=== PATIENT | female | born 1970 | race Caucasian/White ===

== ENCOUNTER 2025-02-17 12:13 | Emergency (ER) | payer BC ==
[~2025-02-17] VITALS: Ht 172.7 cm; Wt 75.0 kg
[2025-02-17 12:23] VITALS: TEMP 98.4
[2025-02-17 13:49] LABS: CREATININE 0.76 MG/DL (0.40-0.90); TOTAL CARBON DIOXIDE 24.8 MMOL/L (24-32); eCRCL 84 ML/MIN; eGFR 79 ML/MIN
[2025-02-17 14:07] LABS: MEAN PLATELET VOLUME 7.8 FL (7.4-10.4); RED CELL DISTRIBUTION WIDTH 12.7 % (11.5-14.5)
[2025-02-17 14:33] LABS: URINE HCG NEGATIVE (NEG)
[2025-02-17 14:35] LABS: LEUKOCYTE ESTERASE ,URINE NEGATIVE (Neg); NITRITES, URINE NEGATIVE (Neg); OCCULT BLOOD,URINE SMALL (Neg)
[2025-02-17 14:42] LABS: UA COLLECTION TYPE CLN CATCH MIDSTREAM
[2025-02-17 14:43] LABS: SQUAMOUS EPITHELIAL CELL,UR FEW /LPF (FEW)
[2025-02-17 14:45] LABS: AMORPHOUS URATES 1+
--- NOTE | 2025-02-17 15:00 | Physician Documentation ---
History of Present Illness Chief Complaint: Abdominal Pain Stated Complaint: DOCTOR REFERRAL Time Seen by MD: 14:10 HPI 54-year-old female with a history of diverticulitis was evaluated at [facility] yesterday. She Had bloating, right lower quadrant pain She States that she essentially has not been eating for several days in a self-described bowel rest. Patient has been hospitalized before for a small ulceration in her descending colon in 2022. She was negative for any blood in her stool and [facility] With a CTA performed at [facility], the impression indicated that the patient has acute diverticulitis with possible perforation Medication Reconciliation Allergies: Coded Allergies: No Known Allergies (Unverified , 02/17/25) Scheduled Amox Tr/Potassium Clavulanate 875/125 MG (Augmentin 875/125 MG), 1 TAB PO Q12H Physical Exam Vital Signs: Temperature: 98.4, Source: Temporal, Heart Rate: 78, Respiratory Rate: 16, BP: 125/84, Pulse Oximetry: 99, Weight: 75.000 Oxygen Flow Rate: 0 Progress Results/Orders Results/Orders Vital Signs 02/17/25 02/17/25 12:23 14:33 Temp 98.4 Pulse 78 Resp 16 16 B/P (MAP) 125/84 Pulse Ox 99 O2 Flow Rate 0 Laboratory Tests Test 02/17/25 13:20 02/17/25 14:14 White Blood Count 5.6 Red Blood Count 4.53 Hemoglobin 13.4 Hematocrit 38.3 Mean Corpuscular Volume 84.5 Mean Corpuscular Hemoglobin 29.7 Mean Corpuscular Hemoglobin Concent 35.1 Red Cell Distribution Width 12.7 Platelet Count 358 Mean Platelet Volume 7.8 Neutrophils (%) (Auto) 71.2 Lymphocytes (%) (Auto) 21.4 Monocytes (%) (Auto) 6.1 Eosinophils (%) (Auto) 0.6 Basophils (%) (Auto) 0.7 Neutrophils # (Auto) 4.0 Lymphocytes # (Auto) 1.2 Monocytes # (Auto) 0.3 Eosinophils # (Auto) 0.0 Basophils # (Auto) 0.0 CBC Comment Sodium Level 140 Potassium Level 3.5 Chloride Level 103 Carbon Dioxide Level 24.8 Anion Gap 12 Blood Urea Nitrogen 14 Creatinine 0.76 Estimated GFR/1.73 m2 79 BUN/Creatinine Ratio 18.4 Glucose Level 93 Calcium Level 9.9 Total Bilirubin 0.5 Aspartate Amino Transf (AST/SGOT) 17 Alanine Aminotransferase (ALT/SGPT) 24 Alkaline Phosphatase 92 Total Protein 8.7 H Albumin 4.0 Globulin 4.7 H Albumin/Globulin Ratio 0.9 L Lipase 28 Chemistry Comments Urine Specimen Description Cln catch midstream Urine Color Yellow Urine Clarity Clear Urine pH 6.0 Urine Specific Fischer 1.010 Urine Protein Negative Urine Glucose (UA) Negative Urine Ketones Negative Urine Occult Blood Small Urine Nitrite Negative Urine Bilirubin Negative Urine Urobilinogen 0.2 Urine Leukocyte Esterase Negative Urine RBC 0-2 Urine WBC 0-4 Urine Squamous Epithelial Cells Few Urine Amorphous Urates 1+ Urine Bacteria None seen Urine Culture Indicated Not ind Volume Urine Centrifuged 10 ml Urine HCG, Qualitative Negative Urine Comment Medical Decision Making Findings This very pleasant 54-year-old female has been in the ER for an extended period of time while we have waited for the imaging from her previous hospital. Her laboratory values do not clinically correlate with the diagnosis diverticulitis with perforation. She states she feels better was able to eat chicken soup earlier today and has been asymptomatic. I discussed this case with and he requested that we obtain imaging from [facility] however there has been some technical difficulties we have been unable to receive the film which I explained to the patient. At this time the patient states she would rather leave against medical advice and placed on oral antibiotics so she can follow up in the outpatient setting. Feel this is reasonable as she has improved symptoms her labs do not correlate with infection and she remains nontender to her abdomen. additionally, she said that she does not want to be scanned again as I would add to her bill. Advised her to return to the ED if she has any worsening symptoms Differential Dx:Considerations: Include: AAA, -Complete, - Incomplete, -Inevitable, -Missed, -Threatened, Abruptio placentae, Angina/[place], Aortic dissection, Appendicitis, Bowel obstruction, Cholangitis, Cholelithasis, Constipation, Diverticular disease, Esophageal rupture, Esophagitis, Gastritis/PUD, Gastroenteritis, GI hemorrhage, Hernia, Hepatitis, Inflammatory BD, Ischemic bowel, Ovarian cyst/torsion, Pancreatitis, PID, Porphyria, Trauma, intraabdominal, Urinary obstruction, Urinary tract infection, Urolithiasis, Other Departure Disposition: 07 LEFT AGAINST MEDICAL ADVICE Impression: Primary Impression: Diverticulitis Condition: Stable Discharge Instructions: Diverticulitis, [id number] Additional Instructions: Please follow up with your doctor and/or general surgeon for further evaluation of your CT scan Referrals: NO PRIMARY CARE PROVIDER (PCP) Prescriptions Amox Tr/Potassium Clavulanate 875/125 MG (Augmentin 875/125 MG) 875 Mg-125 Mg Tablet 1 TAB PO Q12H for 10 Days, #20 TAB Prov: RAY PALACIOS PACKAGING TECH 02/17/25 Signature Scribe Signature: h Attestation: Scribed for Ray Palacios [employer] Installer by Ray Palacios - [employer] . 02/17/25 17:05 RAY PALACIOS PACKAGING TECH Feb 17, 2025 14:59
[2025-02-17 16:44] VITALS: BP 122/86; PULSE 71; RESP 12; O2SAT 99
[2025-02-17] MEDS ORDERED: AMOX-580 PO (16:57)
== END 2025-02-17 17:13 | disposition left against medical advice (07) ==
LOC: ER 12:14
DX: K57.32 Diverticulitis of large intestine without perforation or abscess without bleeding (principal)
CPT/HCPCS: 36415; 80053; 81001; 81025; 83690; 85025; 99283